=== PATIENT | female | born 1975 | race Caucasian/White ===

== ENCOUNTER → 2016-09-07 | Outpatient (REF) | payer OTHER ==
[2016-09-07 11:32] LABS: MEAN CORPUSCULAR HEMOGLOBIN 26.1 pg (27.0-33.0); MEAN CORPUSCULAR HGB CONC 31.5 g/dl (32.0-36.5); MEAN CORPUSCULAR VOLUME 82.8 fl (80.0-96.0); RED CELL DISTRIBUTION WIDTH 14.7 % (11.5-14.5); WHITE BLOOD COUNT 5.1 K/mm3 (4.0-10.0)
[2016-09-07 11:44] LABS: ALBUMIN 3.8 GM/DL (3.2-5.2); ALBUMIN/GLOBULIN RATIO 1.27 (1.00-1.93); ALKALINE PHOSPHATASE 59 U/L (45-117); ALT/SGPT 14 U/L (12-78); ANION GAP 6 MEQ/L (8-16); AST/SGOT 12 U/L (15-37); BILIRUBIN,TOTAL 0.3 MG/DL (0.2-1.0); BLOOD UREA NITROGEN 15 MG/DL (7-18); CALCIUM LEVEL 8.9 MG/DL (8.5-10.1); CARBON DIOXIDE LEVEL 30 MEQ/L (21-32); CHLORIDE LEVEL 106 MEQ/L (98-107); CHOLESTEROL LEVEL 216 MG/DL (<200); CREATININE FOR GFR 0.75 MG/DL (0.55-1.02); FERRITIN 5 NG/ML (8-252); GLOMERULAR FILTRATION RATE > 60.0 (>58); GLUCOSE, FASTING 94 MG/DL (70-105); POTASSIUM SERUM 4.5 MEQ/L (3.5-5.1); SODIUM LEVEL 142 MEQ/L (136-145); TOTAL PROTEIN 6.8 GM/DL (6.4-8.2); TRIGLYCERIDES LEVEL 92 MG/DL (<150)
== END ==
LOC: M SFHCLERA 09:06
PROVIDERS: ATTEND Physician Assistant
DX: Z00.00 Encounter for general adult medical examination without abnormal findings (principal); D50.9 Iron deficiency anemia, unspecified; Z13.220 Encounter for screening for lipoid disorders

== ENCOUNTER → 2018-06-13 | Outpatient (REF) | payer OTHER ==
[2018-06-13 11:22] LABS: HEMATOCRIT 39.5 % (36.0-47.0); HEMOGLOBIN 12.3 g/dl (12.0-15.5); MEAN CORPUSCULAR HEMOGLOBIN 25.9 pg (27.0-33.0); MEAN CORPUSCULAR HGB CONC 31.1 g/dl (32.0-36.5); MEAN CORPUSCULAR VOLUME 83.3 fl (80.0-96.0); PLATELET COUNT, AUTOMATED 335 10^3/uL (150-450); RED BLOOD COUNT 4.74 10^6/uL (4.00-5.40); RED CELL DISTRIBUTION WIDTH 18.8 % (11.5-14.5); WHITE BLOOD COUNT 6.3 10^3/uL (4.0-10.0)
[2018-06-13 12:15] LABS: ALBUMIN 3.5 GM/DL (3.2-5.2); ALBUMIN/GLOBULIN RATIO 1.06 (1.00-1.93); ALKALINE PHOSPHATASE 56 U/L (45-117); ALT/SGPT 15 U/L (12-78); ANION GAP 11 MEQ/L (8-16); AST/SGOT 8 U/L (7-37); BILIRUBIN,TOTAL 0.4 MG/DL (0.2-1.0); BLOOD UREA NITROGEN 15 MG/DL (7-18); CALCIUM LEVEL 8.5 MG/DL (8.5-10.1); CARBON DIOXIDE LEVEL 23 MEQ/L (21-32); CHLORIDE LEVEL 106 MEQ/L (98-107); CHOLESTEROL LEVEL 212 MG/DL (<200); CHOLESTEROL RISK RATIO 2.826 (<5); FERRITIN 36 NG/ML (8-252); GLOMERULAR FILTRATION RATE > 60.0 (>58); GLUCOSE, FASTING 83 MG/DL (70-100); HDL CHOLESTEROL 75 MG/DL (>40); LDL CHOLESTEROL 121 MG/DL (<100); NON-HDL-C 137 MG/DL; POTASSIUM SERUM 4.5 MEQ/L (3.5-5.1); SODIUM LEVEL 140 MEQ/L (136-145); TOTAL PROTEIN 6.8 GM/DL (6.4-8.2); TRIGLYCERIDES LEVEL 81 MG/DL (<150)
== END ==
LOC: M SFHCLERA 09:23
DX: D50.9 Iron deficiency anemia, unspecified (principal); Z13.220 Encounter for screening for lipoid disorders

== ENCOUNTER → 2019-03-23 | Outpatient (CLI) | payer OTHER ==
--- NOTE | 2019-03-23 11:44 | REP ---
REASON: Pain after trauma 5 days ago. There is a hairline fracture involving the base of the distal phalanx of the 1st digit with an intra-articular component. In the soft tissues volar to the base of the distal phalanx of the 1st digit. There is a calcific density which measures 7 mm in its greatest dimension. The etiology of this is uncertain. IMPRESSION: Subtle fracture distal phalanx as described above. Soft tissue calcification of uncertain etiology. Correlate clinically and if necessary obtain an MRI. A foreign body cannot be ruled out. Electronically Signed by Bo Cook DO 03/23/2019 02:13 P
== END ==
LOC: M LRY 10:05
PROVIDERS: ATTEND Nurse Practitioner Family
DX: S62.521A Displaced fracture of distal phalanx of right thumb, initial encounter for closed fracture (principal); X58.XXXA Exposure to other specified factors, initial encounter; Y92.9 Unspecified place or not applicable
CPT/HCPCS: 29130; 73140; G0463

== ENCOUNTER → 2021-07-08 | Outpatient (REF) | payer OTHER | LOC: M SFHCWAGY 12:51 | PROVIDERS: ATTEND Nurse Practitioner Women's Health | DX: Z12.4 Encounter for screening for malignant neoplasm of cervix (principal) | CPT/HCPCS: G0123; G0463 ==

== ENCOUNTER → 2021-09-02 | Outpatient (CLI) | payer OTHER | LOC: M WHC 15:16 | PROVIDERS: ATTEND Nurse Practitioner Family | DX: Z12.31 Encounter for screening mammogram for malignant neoplasm of breast (principal) ==